=== PATIENT | female | born 1965 | race Caucasian/White ===

== ENCOUNTER → 2016-08-30 | Outpatient (CLI) | payer BC, OTHER ==
--- NOTE | 2016-08-31 14:16 | MAMMOGRAPHY REPORT ---
BILATERAL DIGITAL SCREENING MAMMOGRAM TOMOSYNTHESIS WITH CAD: 08/30/2016 CLINICAL HISTORY: Routine screening. TECHNIQUE: Breast tomosynthesis in addition to standard 2D mammography was performed. Current study was also evaluated with a Computer Aided Detection (CAD) system. COMPARISON: Comparison is made to exams dated: 03/01/2016 mammogram, 09/01/2015 mammogram, 08/24/2015 mammogram, 02/03/2014 mammogram, 01/30/2013 mammogram, and 02/06/2012 mammogram - [facility]. BREAST COMPOSITION: The tissue of both breasts is heterogeneously dense, which may obscure small ma sses. FINDINGS: No suspicious masses, calcifications, or areas of architectural distortion are noted in e ither breast. There has been no significant interval change compared to prior exams. Bilateral asym metries and scattered bilateral benign-appearing calcifications are not significantly changed. Asym metry in the left subareolar breast best seen on the cc view has the appearance of normal overlappin g fibroglandular tissue on the tomosynthesis images. IMPRESSION: ACR BI-RADS CATEGORY 2: BENIGN There is no mammographic evidence of malignancy. A 1 year screening mammogram is recommended. The p atient will receive written notification of the results. Approximately 10% of breast cancers are not detected with mammography. A negative mammographic repor t should not delay biopsy if a clinically suggestive mass is present. Luciana Troy M.D. /:08/31/2016 07:39:26 Reconciliation Specialist: Erika LOAIZA(Alexx)(Jesi)(BD), [facility] letter sent: Normal 1/2 BI-RADS Code: ACR BI-RADS Category 2: Benign
== END | disposition home or self-care (01) ==
LOC: C.MAMM 17:02
PROVIDERS: ATTEND Family Medicine
DX: Z12.31 Encounter for screening mammogram for malignant neoplasm of breast (principal)

== ENCOUNTER → 2017-01-04 | Outpatient (CLI) | payer BC ==
--- NOTE | 2017-01-04 13:42 | DIAGNOSTIC IMAGING REPORT ---
ULTRASOUND KIDNEYS AND BLADDER CLINICAL HISTORY: Dorsalgia. Reported history of nephrolithiasis. COMPARISON STUDY: No priors. TECHNIQUE: Real-time, grayscale, and color flow sonography of the kidneys and bladder is performed. Images are reviewed in the transverse and longitudinal planes. FINDINGS: Kidneys: The kidneys are normal in size and echotexture. The right kidney measures 9.3 x 4.1 x 4.8 cm and the left kidney measures 9.9 x 4.5 x 3.9 cm. There is no hydronephrosis. No shadowing renal calculi are identified. There is no sonographic evidence of contour deforming renal mass lesion. No perinephric fluid is identified. Bladder: The bladder is normal in appearance. Bilateral ureteral jets were seen. IMPRESSION: Unremarkable sonographic assessment of the kidneys and bladder. Electronically signed by: Higinio Heath M.D. 01/04/2017 1:41 PM Dictated Date/Time: 01/04/2017 1:40 PM
== END | disposition home or self-care (01) ==
LOC: C.ULTR 12:51
PROVIDERS: ATTEND Nurse Practitioner Family
DX: M54.9 Dorsalgia, unspecified (principal); R53.81 Other malaise; Z87.442 Personal history of urinary calculi

== ENCOUNTER → 2017-10-05 | Outpatient (CLI) | payer BC, OTHER ==
--- NOTE | 2017-10-08 08:07 | MAMMOGRAPHY REPORT ---
BILATERAL DIGITAL SCREENING MAMMOGRAM TOMOSYNTHESIS WITH CAD: 10/05/2017 CLINICAL HISTORY: Routine screening. Patient has no complaints. TECHNIQUE: Bilateral breast tomosynthesis in addition to standard 2D mammography was performed. Curre nt study was also evaluated with a Computer Aided Detection (CAD) system. COMPARISON: Comparison is made to exams dated: 08/30/2016 mammogram, 03/01/2016 ultrasound, 03/01/2016 mammogram, 09/01/2015 ultrasound, 09/01/2015 mammogram, and 08/24/2015 mammogram - [facility] [address]. BREAST COMPOSITION: The tissue of both breasts is heterogeneously dense, which may obscure small mas ses. FINDINGS: There is a new small grouping of microcalcifications in the upper outer middle one third o f the right breast, for which additional spot magnification views are recommended. Another possible loose grouping of faint punctate microcalcifications in the lower inner posterior right breast warran ts additional spot magnification views. There is duct ectasia in the subareolar aspect of each breast. No other suspicious mass, architectur al distortion or cluster of microcalcifications is seen. IMPRESSION: ACR BI-RADS CATEGORY 0: INCOMPLETE EVALUATION: NEED ADDITIONAL IMAGING EVALUATION The new small grouping of microcalcifications in the right upper outer quadrant, and possible additio nal microcalcifications in the lower inner right breast need additional imaging evaluation. The patient will be called to schedule an appointment. Approximately 10% of breast cancers are not detected with mammography. A negative mammographic report should not delay biopsy if a clinically suggestive mass is present. Tanya Dumont M.D. ay/:10/05/2017 16:10:03 Downstairs Maid: Eileen Robles, [facility] [address] letter sent: Addl Imaging 0 BI-RADS Code: ACR BI-RADS Category 0: Incomplete Evaluation: Need Additional Imaging Evaluation
== END | disposition home or self-care (01) ==
LOC: C.MAMM 15:46
PROVIDERS: ATTEND Family Medicine
DX: Z12.31 Encounter for screening mammogram for malignant neoplasm of breast (principal); R92.0 Mammographic microcalcification found on diagnostic imaging of breast

== ENCOUNTER → 2017-10-12 | Outpatient (CLI) | payer BC, OTHER ==
--- NOTE | 2017-10-12 15:44 | MAMMOGRAPHY REPORT ---
UNILATERAL RIGHT DIGITAL DIAGNOSTIC MAMMOGRAM: 10/12/2017 CLINICAL HISTORY: Callback from screening mammogram for right breast calcifications. TECHNIQUE: Spot magnification right cc and ML views were obtained. COMPARISON: Comparison is made to exams dated: 10/05/2017 mammogram, 08/30/2016 mammogram, 03/01/2016 u ltrasound, 03/01/2016 mammogram, 09/01/2015 ultrasound, and 09/01/2015 mammogram - [facility]. BREAST COMPOSITION: The tissue of the right breast is heterogeneously dense, which may obscure small masses. FINDINGS: Spot magnification views show a new 3 mm cluster of coarse heterogeneous calcifications in the right upper outer quadrant. Given that the calcifications are new and given the coarse heteroge neous morphology, the calcifications are indeterminate and stereotactic biopsy is recommended for fur ther evaluation. There are also loosely grouped faint punctate calcifications in the right upper inn er quadrant, best seen on the cc view. Compared to prior exams, the calcifications do not appear sig nificantly changed compared to the August 2015 exam and are therefore probably benign given the punc noguera morphology and 2 years of stability; the options of short interval follow-up versus stereotactic biopsy were discussed with the patient and at this time we will opt for short interval follow-up. IMPRESSION: ACR BI-RADS CATEGORY 4: SUSPICIOUS 1. New small 3 mm cluster of coarse heterogeneous calcifications in the right upper outer quadrant. The calcifications are indeterminate and stereotactic biopsy is recommended for further evaluation. 2. Loosely grouped punctate calcifications in the right upper inner quadrant, likely stable dating b ack to the 2015 exam and are probably benign. Pending benign pathology results of the right breast b iopsy, would recommend follow-up diagnostic mammograms of the right breast in 6 months to confirm sta bility on spot magnification views. A phone call was made to the physician's office to confirm faxed results were received. The patient has been verbally notified of the results. She tent[facility] scheduled [facility] Approximately 10% of breast cancers are not detected with mammography. A negative mammographic report should not delay biopsy if a clinically suggestive mass is present. Luciana Troy M.D. ah/:10/12/2017 14:29:11 Repair Welder: Cristiane LOAIZA(R)(M), [facility] letter sent: Abnormal 4/5 BI-RADS Code: ACR BI-RADS Category 4: Suspicious
== END | disposition home or self-care (01) ==
LOC: C.MAMM 13:40
PROVIDERS: ATTEND Family Medicine
DX: R92.1 Mammographic calcification found on diagnostic imaging of breast (principal)

== ENCOUNTER → 2017-10-17 | Outpatient (CLI) | payer BC, OTHER ==
--- NOTE | 2017-10-17 14:36 | Discharge Instructions ---
Discharge Instructions Procedure Procedure Date: Oct 17, 2017. Reason for visit: Right Calcs. Discharge Discharge Date: Oct 17, 2017. Discharge Diagnosis: status post breast biopsy Instructions Activity Recommendations: Additional Limitations (see below) Return to School/Work: no limitations Recommended Home Diet: No Limitations Provider Instructions: ACTIVITY RECOMMENDATIONS: * No lifting, pushing, pulling or exercising the affected side for three days. RETURN TO SCHOOL/WORK: * You may return to work/school after the procedure, but do not perform any strenuous activities for 24 to 48 hours. MEDICATIONS: * Tylenol (two 325 mg) every four to six hours if needed for mild pain (if not allergic to Tylenol). DIET: * Resume previous diet. SPECIAL CARE INSTRUCTIONS: * Keep biopsy site dry for 24 hours. May shower after 24 hours, but do not soak (bathe) incision. * May remove Tegaderm (plastic patch) tomorrow AFTER showering. * Leave the steri-strips on for one week. Allow the steri-strips to fall off by themselves. If not off after one week, you may remove them. You may place a Bandaid crosswise over the strips, if desired. * Apply ice 10 minutes on and 10 minutes off as needed. * Wear a bra at bedtime to sleep more comfortably for 2-3 days. * Your referring physician should have the results after approximately 5 to 7 business days. * Call for unusual bleeding, fever, drainage, etc or if you have any questions call during normal business hours or after hours call Dr Troy, [phone]. FOLLOW UP VISIT: Follow-up with Referring Physician as scheduled. Allergies Coded Allergies: Macrolides (Verified Allergy, 09/17/09) Uncoded Allergies: N (Allergy, Unknown, 09/25/02) NKA (Allergy, Unknown, 09/25/02) NKFA (Allergy, Unknown, 09/25/02) ERYTHROMYCIN (Generic Allergy) (Allergy, Y, 09/25/02) Bunny Morin Recommendations: Call your doctor if: * Temperature above 101 degrees * Pain not relieved by pain medicine ordered * There is increased drainage or redness from any incision * You have any unanswered questions or concerns. Your Doctors Instructions noted above were prepared by provider Luciana Troy. Patient Signature Section: Patient Instructions Signature Page Teri Rogers Patient (or Guardian) Signature/Date: I have read and understand the instructions given to me by my caregivers. Caregiver/RN/Doctor Signature/Date: The above-named patient and/or guardian has received patient instructions on this date. + Original Patient Signature Page (only) stays with chart. Please make copy for patient.
--- NOTE | 2017-10-18 08:00 | MAMMOGRAPHY REPORT ---
STEREOTACTIC GUIDED BIOPSY RIGHT BREAST: 10/17/2017 CLINICAL HISTORY: Indeterminate calcifications in the right upper outer quadrant. PATIENT CONSENT: The procedure, risks, benefits, and alternatives of stereotactic biopsy with clip pl acement were discussed with the patient, and verbal and written consent was obtained. A timeout was performed immediately prior to the procedure. PROCEDURE DESCRIPTION: With stereotactic guidance, aseptic technique, and lidocaine as a local anesth etic (1% lidocaine to anesthetize the skin and 1% lidocaine with epinephrine to anesthetize the deepe r tissues), the calcifications of concern in the right upper outer quadrant where sampled multiple ti mes with a 9-gauge vacuum-assisted biopsy needle (Runivermag). The path of approach was lateral. T he specimen radiograph demonstrates calcifications to be present in the samples. A metallic marker c lip was placed at the biopsy site. This was confirmed on postprocedure mammograms. Direct pressure was applied at the biopsy site and hemostasis was readily achieved. The patient tolerated the proced ure without complication. She was given wound care instructions. COMPARISON: Comparison is made to exams dated: 10/12/2017 mammogram, 10/05/2017 mammogram, 08/30/2016 ma mmogram, 03/01/2016 ultrasound, 03/01/2016 mammogram, and 08/24/2015 mammogram - [facility]. IMPRESSION: STEREOTACTIC GUIDED BIOPSY Stereotactic biopsy of indeterminate calcifications in the right upper outer quadrant, with clip plac ement. The patient will receive pathology results from her referring provider. Pending benign patho logy results, would recommend follow-up diagnostic mammograms of the right breast in 6 months to conf irm stability of other loosely grouped benign-appearing calcifications in the right upper inner quadr ant. Luciana Troy M.D. /:10/17/2017 14:45:47 Mixing Pan Tender: [place] LOAIZA(R)(M), [facility]
--- NOTE | 2017-10-18 08:05 | MAMMOGRAPHY REPORT ---
UNILATERAL RIGHT DIGITAL DIAGNOSTIC MAMMOGRAM: 10/17/2017 CLINICAL HISTORY: Status post right breast stereotactic biopsy. TECHNIQUE: Postprocedural right CC and ML views were obtained. COMPARISON: Comparison is made to exams dated: 10/12/2017 mammogram, 10/05/2017 mammogram, 08/30/2016 ma mmogram, 03/01/2016 mammogram, 09/01/2015 mammogram, and 02/03/2014 mammogram - [facility]ter. BREAST COMPOSITION: The tissue of the right breast is heterogeneously dense, which may obscure small masses. FINDINGS: A new biopsy marker clip is seen at the site of the biopsied calcifications in the right la teral breast at approximately 9:00. No significant postbiopsy hematoma is seen. IMPRESSION: POST PROCEDURE IMAGING FOR MARKER PLACEMENT New biopsy marker clip status post right breast stereotactic biopsy. Pathology results are pending. Approximately 10% of breast cancers are not detected with mammography. A negative mammographic report should not delay biopsy if a clinically suggestive mass is present. Luciana Troy M.D. ah/:10/17/2017 14:56:11 Cabin Furnishings Installer: [place] LOAIZA(Alexx)(M), [facility] BI-RADS Code: Post Procedure Imaging For Marker Placement
== END | disposition home or self-care (01) ==
LOC: C.MAMM 13:34
PROVIDERS: ATTEND Family Medicine
DX: R92.0 Mammographic microcalcification found on diagnostic imaging of breast (principal); N60.91 Unspecified benign mammary dysplasia of right breast